=== PATIENT | female | born 1935 | race Caucasian/White ===

== ENCOUNTER 2018-09-25 10:30 | Outpatient (RCR) | payer MEDICARE, SELFPAY ==
--- NOTE | 2018-07-17 16:45 | PT.OPPOC ---
Current Diagnoses Muscle weakness (generalized) (07/17/18) Other abnormalities of gait and mobility (07/17/18) Dizziness and giddiness (07/17/18) Provider Visit Care Team Role Provider Type Willy Arizmendi MD Attending Provider Physician Specialty: Ear, Nose, Throat Address: [address] [place] [address], [id number] Email: Plan Of Care PT-OP-T Assessment and Plan Start: 07/17/18 17:48 Freq: Status: Active Protocol: Document 07/17/18 16:00 DCW (Rec: 07/18/18 09:59 DCW [id number]) Physical Therapy Assessment Rehab Potential Rehabilitation Potential Good Evaluation Complexity Number of Personal Factors/Comorbidities 1-2 Number of Body Systems Impaired 3 Clinical Presentation at Evaluation Unstable Impairments Impairments Activity Tolerance Balance Functional Activities Strength Goals Four Impairment DHI Union Contract Representative Goal (LTG) Pt to score 10% on DHI Three Impairment DGI demonstrates decreased dynamic balance Short Term Goal (STG) Pt to score 16/24 on the DGI STG Duration 08/16/18 Skilled Nursing Goal (LTG) Pt to score 19/24 on the DGI LTG Duration 09/16/18 Two Impairment Pt fear of falling Short Term Goal (STG) Pt to descend stairs at home with no increased anxiety STG Duration 08/16/18 Union Contract Representative Goal (LTG) Pt to work out in yard for one hour with no reports of instability LTG Duration 09/16/18 One Impairment Pt has no appropriate independent home exercise program Short Term Goal (STG) Pt to be independent and consistent with an appropriate HEP STG Duration 08/16/18 Assessment Summary Assessment Pt presents with signs and symptoms of a multi-factorial loss of balance and stability, resulting in an increased falls risk and an increased fear of falling. Pt's vestibular examination was largely negative, with hearing loss noted L>R (pt was not wearing her hearing aids), and a mildly positive heave and thrust test bilaterally, which is usually associated with age-related vestibular hypofunction. Pt balance testing demonstrated good static balance, per a 49/56 Martinez Balance, and fair-poor dynamic balance, scoring a 13/ 24 on the DGI. Pt also displayed generalized LE weakness. Further testing should be performed, mainly a TUG test and CTSIB, as well as lower extremity sensory testing. Pt would likely benefit from skilled therapy focusing on balance testing and LE strengthening, which should help decrease her falls risk. Physical Therapy Plan Frequency and Duration Frequency of Treatment 2x/Week Duration of Treatment 10 weeks Plan of Care Start Date 07/17/18 Plan of Care End Date 09/25/18 Therapeutic Interventions Therapeutic Interventions Aquatic Therapy Balance Training Gait Training Home Exercise Program Manual Therapy Patient/Caregiver Education Self-Care/Home Management Therapeutic Activities Therapeutic Exercises Vestibular Rehabilitation Modalities Cold Pack/Ice Massage Hot Packs Next Visit Focus/Plan Next Note Type Treatment Note Next Visit Plan TUG, LE sensory testing, CTSIB , balance testing Plan of Care Dates Plan of Care Start Date 07/17/18 Plan of Care End Date 09/25/18 Please Sign and Return: I have reviewed this Plan of Care and certify that the skilled therapy services above are required to meet the patient?s needs. Physician Signature Date Printed Name and Credentials Clinical Instructor Signature Printed Name and Credentials
--- NOTE | 2018-07-17 16:45 | PT.OIE ---
Current Diagnoses Muscle weakness (generalized) (07/17/18) Other abnormalities of gait and mobility (07/17/18) Dizziness and giddiness (07/17/18) Provider Visit Care Team Role Provider Type Willy Arizmendi MD Attending Provider Physician Specialty: Ear, Nose, Throat Address: [address] [place] [address], [phone] Email: Physical Therapy Initial Evaluation PT-OP-A Visit Information Start: 07/17/18 17:48 Freq: Status: Active Protocol: Document 07/17/18 16:00 DCW (Rec: 07/18/18 09:59 DCW [id number]) Out-Patient Physical Therapy Visit Information Visit Information Visit Type Initial Evaluation Visit Start Time 16:00 Visit Stop Time 16:45 Total Visit Minutes 45 Visit Number 1 Number of MERRY GO ROUND OPERATOR Visits 0 Evaluation Information Evaluation Date 07/17/18 PT-OP-B Current Condition Start: 07/17/18 17:48 Freq: Status: Active Protocol: Document 07/17/18 16:00 DCW (Rec: 07/18/18 09:59 DCW [id number]) Current Condition History of Current Condition Onset Date one year Current Complaints Gradual worsening of feeling of imbalance and increased fear of falling History of Current Condition Pt is an 82 year old female presenting with a ongoing history of a sensation of dizziness. Pt notes her dizziness is not rotational in nature, it is more of a general feeling of imbalance/ unsteadiness. Reports that she has noticed this sensation for more than a year, but with being out during the summer doing gardening, it seems to be worsening. Notes this sensation is more or less always there, and she feels the need to sit at the edge of her bed for a while when first getting up in order to center herself. Pt reports two recent falls, one occurring after she jumped quickly out of bed to get to the bathroom, and one following cataract surgery when she was leaning backward to put in eye drops and lost her balance. Pt denies recent hearing changes, diplopia, dysarthria, discoordination, or decreased mentation/consciousness. Pt denies hx of HTN, hyperlipidemia, diabetes, arrhythmia, head trauma, seizure, migraines, CVA, anxiety/panic disorders, depression, or excessive smoking or drinking. Treatment Goals Patient/Caregiver Goals Pt wants to feel more stable when up walking around Prior Functional Status Baseline Function- ADL's Independent Baseline Function- Mobility Independent Current Functional Impairments (Reported) Functional Limitations- Mobility/Gait Anxiety descending stairs Functional Limitations- Recreation/ Difficulty being out working Hobbies in the yard PT-OP-C Subjective Start: 07/17/18 17:48 Freq: Status: Active Protocol: Document 07/17/18 16:00 DCW (Rec: 07/18/18 09:59 DCW [id number]) Patient Questionnaires Dizziness Handicap Inventory DHI Score 32% DHI Functional Impairment 20 to 39% Impaired (Score 20- 39) OP-PT Pain Assessment Pain Assessment Grid Paper Pain Assessment Grid Completed No PT-OP-D Balance Start: 07/17/18 17:48 Freq: Status: Active Protocol: Document 07/17/18 16:00 DCW (Rec: 07/18/18 09:59 DCW [id number]) OP-PT Balance Assessment Sitting Balance Static Sitting Balance Ability Normal Dynamic Sitting Balance Ability Normal Standing Balance Static Standing Balance Ability Good Dynamic Standing Balance Ability Fair Balance Tests Martinez Balance Test Martinez Balance Test Score 49/56 Martinez Impairment Rating 1 to 19% Impaired (Score 45-55 ) Martinez Balance Assessment Evaluation Sitting to Standing Ability Independent w/out Hands Unsupported Stance Safely- 2 minutes Sitting Unsupported, Feet on Floor Safely- 2 minutes Standing to Sitting Ability Safely, Minimal Hand Use Transfer Ability Safely, Minimal Hand Use Unsupported Stance- Eyes Closed Safely, 10 seconds Unsupported Stance- Eyes Open Independent, 1 minute Reaching Forward Standing Confidently, 10 inches Pick- Up Object From Floor Independent/Safe Look Behind Shoulder - Standing Turns Sideways Only Turning 360 Degrees Turns , < 4 secs Unsupported Stance, Alternating Feet on (I)- 8 Steps in 20 secs Stair Unsupported Tandem Stance Holds Tandem- 30 seconds Unilateral Leg Stance Lifts Leg/Unable to Hold Total Score Martinez Total Score (out of 56 points) 49 Martinez Impairment Rating 1 to 19% Impaired (Score 45-55 ) Coleman Fall Scale Copyright Permission Coleman GONZALES, Coleman RM, Rubio SJ. Development of a scale to identify the fall- prone patient. Can J Aging 1989;8;366-7. Diane Cee (2009). Preventing patient falls. (2nd ed). Dawson: Shearer. PT-OP-E Functional Tests Start: 07/17/18 17:48 Freq: Status: Active Protocol: Document 07/17/18 16:00 DCW (Rec: 07/18/18 09:59 DCW [id number]) Functional Tests Dynamic Gait Index (DGI) Score 13/24 DGI Impairment Rating 40 to <60% Impaired (Score 10- 14) PT-OP-M Strength Start: 07/17/18 17:48 Freq: Status: Active Protocol: Document 07/17/18 16:00 DCW (Rec: 07/18/18 09:59 DCW [id number]) Hip Strength Hip Manual Muscle Testing Right Flexion (L2) 4 Good Extension (S1) 4 Good Abduction 4- Good- Adduction 4 Good External Rotation 4- Good- Internal Rotation 4- Good- Left Flexion (L2) 4 Good Extension (S1) 4 Good Abduction 4- Good- Adduction 4 Good External Rotation 4- Good- Internal Rotation 4- Good- Knee Strength Knee Manual Muscle Testing Right Flexion (S2) 4 Good Extension (L3) 4- Good- Left Flexion (S2) 4 Good Extension (L3) 4- Good- Ankle/Foot Strength Ankle and Foot Manual Muscle Testing Right Dorsiflexion (L4) 4- Good- Plantarflexion (S1) 4- Good- Left Dorsiflexion (L4) 4- Good- Plantarflexion (S1) 4- Good- PT-OP-O Vestibular Start: 07/18/18 09:59 Freq: Status: Active Protocol: Document 07/17/18 16:00 DCW (Rec: 07/18/18 10:01 DCW [id number]) Vestibular Assessment Screening Tests Vestibular Artery Screen Negative Sharp-Katie Test Negative Auditory Tests Alexander Test Negative Rinne Test Negative Air Conduction Results Right Greater Visual Testing Smooth Pursuits Horizontal Negative Smooth Pursuits Vertical Negative Saccades Horizontal Negative Gaze Evoked Nystagmus With Fixation Negative Gaze Evoked Nystagmus Without Fixation Negative Heave Test Positive Bilateral Thrust Head Positive Bilateral Head Shake Negative Positional Testing Beto-Hallpike Negative Left Negative Right Rolling Test Negative Left Negative Right Supine to Sit lighthead Comments Vestibular Comments Thrust and heave tests mildly positive bilaterally PT-OP-T Assessment and Plan Start: 07/17/18 17:48 Freq: Status: Active Protocol: Document 07/17/18 16:00 DCW (Rec: 07/18/18 09:59 DCW [id number]) Physical Therapy Assessment Rehab Potential Rehabilitation Potential Good Evaluation Complexity Number of Personal Factors/Comorbidities 1-2 Number of Body Systems Impaired 3 Clinical Presentation at Evaluation Unstable Impairments Impairments Activity Tolerance Balance Functional Activities Strength Goals Four Impairment DHI Ruling Machine Feeder Goal (LTG) Pt to score 10% on DHI Three Impairment DGI demonstrates decreased dynamic balance Short Term Goal (STG) Pt to score 16/24 on the DGI STG Duration 08/16/18 Halfway Goal (LTG) Pt to score 19/24 on the DGI LTG Duration 09/16/18 Two Impairment Pt fear of falling Short Term Goal (STG) Pt to descend stairs at home with no increased anxiety STG Duration 08/16/18 Halfway Goal (LTG) Pt to work out in yard for one hour with no reports of instability LTG Duration 09/16/18 One Impairment Pt has no appropriate independent home exercise program Short Term Goal (STG) Pt to be independent and consistent with an appropriate HEP STG Duration 08/16/18 Assessment Summary Assessment Pt presents with signs and symptoms of a multi-factorial loss of balance and stability, resulting in an increased falls risk and an increased fear of falling. Pt's vestibular examination was largely negative, with hearing loss noted L>R (pt was not wearing her hearing aids), and a mildly positive heave and thrust test bilaterally, which is usually associated with age-related vestibular hypofunction. Pt balance testing demonstrated good static balance, per a 49/56 Martinez Balance, and fair-poor dynamic balance, scoring a 13/ 24 on the DGI. Pt also displayed generalized LE weakness. Further testing should be performed, mainly a TUG test and CTSIB, as well as lower extremity sensory testing. Pt would likely benefit from skilled therapy focusing on balance testing and LE strengthening, which should help decrease her falls risk. Physical Therapy Plan Frequency and Duration Frequency of Treatment 2x/Week Duration of Treatment 10 weeks Plan of Care Start Date 07/17/18 Plan of Care End Date 09/25/18 Therapeutic Interventions Therapeutic Interventions Aquatic Therapy Balance Training Gait Training Home Exercise Program Manual Therapy Patient/Caregiver Education Self-Care/Home Management Therapeutic Activities Therapeutic Exercises Vestibular Rehabilitation Modalities Cold Pack/Ice Massage Hot Packs Next Visit Focus/Plan Next Note Type Treatment Note Next Visit Plan TUG, LE sensory testing, CTSIB , balance testing
--- NOTE | 2018-07-23 17:33 | PT.OTN ---
Current Diagnoses Dizziness and giddiness (07/23/18) Physical Therapy Treatment Note PT-OP-A Visit Information Start: 07/17/18 17:48 Freq: Status: Active Protocol: Document 07/23/18 16:45 DCW (Rec: 07/23/18 17:33 DCW [id number]) Out-Patient Physical Therapy Visit Information Visit Information Visit Type Treatment Note Visit Start Time 16:45 Visit Stop Time 17:30 Total Visit Minutes 45 Visit Number 2 Number of ICE GRINDER Visits 0 Evaluation Information Evaluation Date 07/17/18 PT-OP-B Current Condition Start: 07/17/18 17:48 Freq: Status: Active Protocol: Document 07/17/18 16:00 DCW (Rec: 07/18/18 09:59 DCW [id number]) Current Condition History of Current Condition Onset Date one year Current Complaints Gradual worsening of feeling of imbalance and increased fear of falling History of Current Condition Pt is an 82 year old female presenting with a ongoing history of a sensation of dizziness. Pt notes her dizziness is not rotational in nature, it is more of a general feeling of imbalance/ unsteadiness. Reports that she has noticed this sensation for more than a year, but with being out during the summer doing gardening, it seems to be worsening. Notes this sensation is more or less always there, and she feels the need to sit at the edge of her bed for a while when first getting up in order to center herself. Pt reports two recent falls, one occurring after she jumped quickly out of bed to get to the bathroom, and one following cataract surgery when she was leaning backward to put in eye drops and lost her balance. Pt denies recent hearing changes, diplopia, dysarthria, discoordination, or decreased mentation/consciousness. Pt denies hx of HTN, hyperlipidemia, diabetes, arrhythmia, head trauma, seizure, migraines, CVA, anxiety/panic disorders, depression, or excessive smoking or drinking. Treatment Goals Patient/Caregiver Goals Pt wants to feel more stable when up walking around Prior Functional Status Baseline Function- ADL's Independent Baseline Function- Mobility Independent Current Functional Impairments (Reported) Functional Limitations- Mobility/Gait Anxiety descending stairs Functional Limitations- Recreation/ Difficulty being out working Hobbies in the yard PT-OP-C Subjective Start: 07/17/18 17:48 Freq: Status: Active Protocol: Document 07/23/18 16:45 DCW (Rec: 07/23/18 17:33 DCW [id number]) OP-PT Subjective Patient Comments Patient Comments I spent all day digging out in the garden, so I'll probably be sore tonight. PT-OP-D Balance Start: 07/17/18 17:48 Freq: Status: Active Protocol: Document 07/17/18 16:00 DCW (Rec: 07/18/18 09:59 DCW [id number]) OP-PT Balance Assessment Sitting Balance Static Sitting Balance Ability Normal Dynamic Sitting Balance Ability Normal Standing Balance Static Standing Balance Ability Good Dynamic Standing Balance Ability Fair Balance Tests Martinez Balance Test Martinez Balance Test Score 49/56 Martinez Impairment Rating 1 to 19% Impaired (Score 45-55 ) Martinez Balance Assessment Evaluation Sitting to Standing Ability Independent w/out Hands Unsupported Stance Safely- 2 minutes Sitting Unsupported, Feet on Floor Safely- 2 minutes Standing to Sitting Ability Safely, Minimal Hand Use Transfer Ability Safely, Minimal Hand Use Unsupported Stance- Eyes Closed Safely, 10 seconds Unsupported Stance- Eyes Open Independent, 1 minute Reaching Forward Standing Confidently, 10 inches Pick- Up Object From Floor Independent/Safe Look Behind Shoulder - Standing Turns Sideways Only Turning 360 Degrees Turns , < 4 secs Unsupported Stance, Alternating Feet on (I)- 8 Steps in 20 secs Stair Unsupported Tandem Stance Holds Tandem- 30 seconds Unilateral Leg Stance Lifts Leg/Unable to Hold Total Score Martinez Total Score (out of 56 points) 49 Martinez Impairment Rating 1 to 19% Impaired (Score 45-55 ) Cee Fall Scale Copyright Permission Coleman JM, Coleman RM, Rubio SJ. Development of a scale to identify the fall- prone patient. Can J Aging 1989;8;366-7. Diane Cee (2009). Preventing patient falls. (2nd ed). Otero: Shearer. PT-OP-E Functional Tests Start: 07/17/18 17:48 Freq: Status: Active Protocol: Document 07/17/18 16:00 DCW (Rec: 07/18/18 09:59 DCW [id number]) Functional Tests Dynamic Gait Index (DGI) Score 13/24 DGI Impairment Rating 40 to <60% Impaired (Score 10- 14) PT-OP-M Strength Start: 07/17/18 17:48 Freq: Status: Active Protocol: Document 07/17/18 16:00 DCW (Rec: 07/18/18 09:59 DCW [id number]) Hip Strength Hip Manual Muscle Testing Right Flexion (L2) 4 Good Extension (S1) 4 Good Abduction 4- Good- Adduction 4 Good External Rotation 4- Good- Internal Rotation 4- Good- Left Flexion (L2) 4 Good Extension (S1) 4 Good Abduction 4- Good- Adduction 4 Good External Rotation 4- Good- Internal Rotation 4- Good- Knee Strength Knee Manual Muscle Testing Right Flexion (S2) 4 Good Extension (L3) 4- Good- Left Flexion (S2) 4 Good Extension (L3) 4- Good- Ankle/Foot Strength Ankle and Foot Manual Muscle Testing Right Dorsiflexion (L4) 4- Good- Plantarflexion (S1) 4- Good- Left Dorsiflexion (L4) 4- Good- Plantarflexion (S1) 4- Good- PT-OP-O Vestibular Start: 07/18/18 09:59 Freq: Status: Active Protocol: Document 07/17/18 16:00 DCW (Rec: 07/18/18 10:01 DCW [id number]) Vestibular Assessment Screening Tests Vestibular Artery Screen Negative Sharp-Katie Test Negative Auditory Tests Alexander Test Negative Rinne Test Negative Air Conduction Results Right Greater Visual Testing Smooth Pursuits Horizontal Negative Smooth Pursuits Vertical Negative Saccades Horizontal Negative Gaze Evoked Nystagmus With Fixation Negative Gaze Evoked Nystagmus Without Fixation Negative Heave Test Positive Bilateral Thrust Head Positive Bilateral Head Shake Negative Positional Testing Beto-Hallpike Negative Left Negative Right Rolling Test Negative Left Negative Right Supine to Sit lighthead Comments Vestibular Comments Thrust and heave tests mildly positive bilaterally PT-OP-Q Treatments Start: 07/17/18 17:48 Freq: Status: Active Protocol: Document 07/23/18 16:45 DCW (Rec: 07/23/18 17:33 DCW [id number]) Gym Equipment Shuttle Balance Red Details Wide KAYLIN (EO/EC), Staggered Stance (Head Turns), Lateral Weight Shift Therapeutic Exercises Other Exercises Resisted Forward/Retro Amb Other Exercise Name Resisted Forward/Retro Ambulation Side bilateral Resistance Yellow Equipment Used T-band Resisted Side Stepping Other Exercise Name Resisted Side-Stepping Side bilateral Resistance Yellow Equipment Used T-band Neuro Re-Education Treatment Balance Activities Hurdles/Foam Details Forward staggered, forward tandem, side-stepping Surface Green, Blue, Black foam Equipment Hurdles Heel/toe Walking Details Fwd/Bkwd heel-toe ambulation Surface Solid Narrow KAYLIN Details EO/EC, Head turns Surface Leo foam SLS Details SLS at rail Surface solid PT-OP-T Assessment and Plan Start: 07/17/18 17:48 Freq: Status: Active Protocol: Document 07/23/18 16:45 DCW (Rec: 07/23/18 17:33 DCW [id number]) Physical Therapy Assessment Impairments Impairments Activity Tolerance Balance Functional Activities Strength Goals Four Impairment DHI Intermediate Goal (LTG) Pt to score 10% on DHI Three Impairment DGI demonstrates decreased dynamic balance Short Term Goal (STG) Pt to score 16/24 on the DGI STG Duration 08/16/18 Wreath And Garland Maker Goal (LTG) Pt to score 19/24 on the DGI LTG Duration 09/16/18 Two Impairment Pt fear of falling Short Term Goal (STG) Pt to descend stairs at home with no increased anxiety STG Duration 08/16/18 Wreath And Garland Maker Goal (LTG) Pt to work out in yard for one hour with no reports of instability LTG Duration 09/16/18 One Impairment Pt has no appropriate independent home exercise program Short Term Goal (STG) Pt to be independent and consistent with an appropriate HEP STG Duration 08/16/18 Assessment Summary Assessment Pt tolerated balance training well, wants to try SLS and Tandem Stance for HEP, able to demonstrate safe and appropriate ability. Physical Therapy Plan Frequency and Duration Frequency of Treatment 2x/Week Duration of Treatment 10 weeks Plan of Care Start Date 07/17/18 Plan of Care End Date 09/25/18 Therapeutic Interventions Therapeutic Interventions Aquatic Therapy Balance Training Gait Training Home Exercise Program Manual Therapy Patient/Caregiver Education Self-Care/Home Management Therapeutic Activities Therapeutic Exercises Vestibular Rehabilitation Modalities Cold Pack/Ice Massage Hot Packs Next Visit Focus/Plan Next Note Type Treatment Note Next Visit Plan TUG, LE sensory testing, CTSIB , balance training
--- NOTE | 2018-07-31 12:44 | PT.OTN ---
Current Diagnoses Dizziness and giddiness (07/31/18) Physical Therapy Treatment Note PT-OP-A Visit Information Start: 07/17/18 17:48 Freq: Status: Active Protocol: Document 07/31/18 12:05 DCW (Rec: 07/31/18 12:44 DCW [id number]) Out-Patient Physical Therapy Visit Information Visit Information Visit Type Treatment Note Visit Start Time 12:05 Visit Stop Time 12:45 Total Visit Minutes 40 Visit Number 3 Number of BASIN OPERATOR Visits 0 Evaluation Information Evaluation Date 07/17/18 PT-OP-B Current Condition Start: 07/17/18 17:48 Freq: Status: Active Protocol: Document 07/17/18 16:00 DCW (Rec: 07/18/18 09:59 DCW [id number]) Current Condition History of Current Condition Onset Date one year Current Complaints Gradual worsening of feeling of imbalance and increased fear of falling History of Current Condition Pt is an 82 year old female presenting with a ongoing history of a sensation of dizziness. Pt notes her dizziness is not rotational in nature, it is more of a general feeling of imbalance/ unsteadiness. Reports that she has noticed this sensation for more than a year, but with being out during the summer doing gardening, it seems to be worsening. Notes this sensation is more or less always there, and she feels the need to sit at the edge of her bed for a while when first getting up in order to center herself. Pt reports two recent falls, one occurring after she jumped quickly out of bed to get to the bathroom, and one following cataract surgery when she was leaning backward to put in eye drops and lost her balance. Pt denies recent hearing changes, diplopia, dysarthria, discoordination, or decreased mentation/consciousness. Pt denies hx of HTN, hyperlipidemia, diabetes, arrhythmia, head trauma, seizure, migraines, CVA, anxiety/panic disorders, depression, or excessive smoking or drinking. Treatment Goals Patient/Caregiver Goals Pt wants to feel more stable when up walking around Prior Functional Status Baseline Function- ADL's Independent Baseline Function- Mobility Independent Current Functional Impairments (Reported) Functional Limitations- Mobility/Gait Anxiety descending stairs Functional Limitations- Recreation/ Difficulty being out working Hobbies in the yard PT-OP-C Subjective Start: 07/17/18 17:48 Freq: Status: Active Protocol: Document 07/31/18 12:05 DCW (Rec: 07/31/18 12:44 DCW [id number]) OP-PT Subjective Patient Comments Patient Comments I've been working on some of my home exercises, they're tough. PT-OP-D Balance Start: 07/17/18 17:48 Freq: Status: Active Protocol: Document 07/17/18 16:00 DCW (Rec: 07/18/18 09:59 DCW [id number]) OP-PT Balance Assessment Sitting Balance Static Sitting Balance Ability Normal Dynamic Sitting Balance Ability Normal Standing Balance Static Standing Balance Ability Good Dynamic Standing Balance Ability Fair Balance Tests Martinez Balance Test Martinez Balance Test Score 49/56 Martinez Impairment Rating 1 to 19% Impaired (Score 45-55 ) Martinez Balance Assessment Evaluation Sitting to Standing Ability Independent w/out Hands Unsupported Stance Safely- 2 minutes Sitting Unsupported, Feet on Floor Safely- 2 minutes Standing to Sitting Ability Safely, Minimal Hand Use Transfer Ability Safely, Minimal Hand Use Unsupported Stance- Eyes Closed Safely, 10 seconds Unsupported Stance- Eyes Open Independent, 1 minute Reaching Forward Standing Confidently, 10 inches Pick- Up Object From Floor Independent/Safe Look Behind Shoulder - Standing Turns Sideways Only Turning 360 Degrees Turns , < 4 secs Unsupported Stance, Alternating Feet on (I)- 8 Steps in 20 secs Stair Unsupported Tandem Stance Holds Tandem- 30 seconds Unilateral Leg Stance Lifts Leg/Unable to Hold Total Score Martinez Total Score (out of 56 points) 49 Martinez Impairment Rating 1 to 19% Impaired (Score 45-55 ) Coleman Fall Scale Copyright Permission Coleman JM, Coleman RM, Rubio SJ. Development of a scale to identify the fall- prone patient. Can J Aging 1989;8;366-7. Diane Cee (2009). Preventing patient falls. (2nd ed). [place]: Shearer. PT-OP-E Functional Tests Start: 07/17/18 17:48 Freq: Status: Active Protocol: Document 07/17/18 16:00 DCW (Rec: 07/18/18 09:59 DCW [id number]) Functional Tests Dynamic Gait Index (DGI) Score 13/24 DGI Impairment Rating 40 to <60% Impaired (Score 10- 14) PT-OP-M Strength Start: 07/17/18 17:48 Freq: Status: Active Protocol: Document 07/17/18 16:00 DCW (Rec: 07/18/18 09:59 DCW [id number]) Hip Strength Hip Manual Muscle Testing Right Flexion (L2) 4 Good Extension (S1) 4 Good Abduction 4- Good- Adduction 4 Good External Rotation 4- Good- Internal Rotation 4- Good- Left Flexion (L2) 4 Good Extension (S1) 4 Good Abduction 4- Good- Adduction 4 Good External Rotation 4- Good- Internal Rotation 4- Good- Knee Strength Knee Manual Muscle Testing Right Flexion (S2) 4 Good Extension (L3) 4- Good- Left Flexion (S2) 4 Good Extension (L3) 4- Good- Ankle/Foot Strength Ankle and Foot Manual Muscle Testing Right Dorsiflexion (L4) 4- Good- Plantarflexion (S1) 4- Good- Left Dorsiflexion (L4) 4- Good- Plantarflexion (S1) 4- Good- PT-OP-O Vestibular Start: 07/18/18 09:59 Freq: Status: Active Protocol: Document 07/17/18 16:00 DCW (Rec: 07/18/18 10:01 DCW [id number]) Vestibular Assessment Screening Tests Vestibular Artery Screen Negative Sharp-Katie Test Negative Auditory Tests Alexander Test Negative Rinne Test Negative Air Conduction Results Right Greater Visual Testing Smooth Pursuits Horizontal Negative Smooth Pursuits Vertical Negative Saccades Horizontal Negative Gaze Evoked Nystagmus With Fixation Negative Gaze Evoked Nystagmus Without Fixation Negative Heave Test Positive Bilateral Thrust Head Positive Bilateral Head Shake Negative Positional Testing Beto-Hallpike Negative Left Negative Right Rolling Test Negative Left Negative Right Supine to Sit lighthead Comments Vestibular Comments Thrust and heave tests mildly positive bilaterally PT-OP-Q Treatments Start: 07/17/18 17:48 Freq: Status: Active Protocol: Document 07/31/18 12:05 DCW (Rec: 07/31/18 12:44 DCW [id number]) Gym Equipment Shuttle Balance Yellow Details Wide KAYLIN (head turns) Red Details Wide KAYLIN (EO/EC), Staggered Stance Therapeutic Exercises Other Exercises Resisted Forward/Retro Amb Other Exercise Name Resisted Forward/Retro Ambulation Side bilateral Resistance Yellow Equipment Used T-band Resisted Side Stepping Other Exercise Name Resisted Side-Stepping Side bilateral Resistance Yellow Equipment Used T-band Neuro Re-Education Treatment Balance Activities [place] Details L/R grapevine Hurdles/Foam Details Forward staggered, forward tandem, side-stepping Surface Green, Blue, Black foam, air discs Equipment Hurdles Heel/toe Walking Details Fwd/Bkwd heel-toe ambulation Surface Solid PT-OP-T Assessment and Plan Start: 07/17/18 17:48 Freq: Status: Active Protocol: Document 07/31/18 12:05 DCW (Rec: 07/31/18 12:44 DCW [id number]) Physical Therapy Assessment Impairments Impairments Activity Tolerance Balance Functional Activities Strength Goals Four Impairment DHI Long-Term Goal (LTG) Pt to score 10% on DHI Three Impairment DGI demonstrates decreased dynamic balance Short Term Goal (STG) Pt to score 16/24 on the DGI STG Duration 08/16/18 Long-Term Goal (LTG) Pt to score 19/24 on the DGI LTG Duration 09/16/18 Two Impairment Pt fear of falling Short Term Goal (STG) Pt to descend stairs at home with no increased anxiety STG Duration 08/16/18 Paper Reeler Goal (LTG) Pt to work out in yard for one hour with no reports of instability LTG Duration 09/16/18 One Impairment Pt has no appropriate independent home exercise program Short Term Goal (STG) Pt to be independent and consistent with an appropriate HEP STG Duration 08/16/18 Assessment Summary Assessment Pt consistent with HEP, will add resisted side-stepping to program. Pt did better on Shuttle Balance today. Physical Therapy Plan Frequency and Duration Frequency of Treatment 2x/Week Duration of Treatment 10 weeks Plan of Care Start Date 07/17/18 Plan of Care End Date 09/25/18 Therapeutic Interventions Therapeutic Interventions Aquatic Therapy Balance Training Gait Training Home Exercise Program Manual Therapy Patient/Caregiver Education Self-Care/Home Management Therapeutic Activities Therapeutic Exercises Vestibular Rehabilitation Modalities Cold Pack/Ice Massage Hot Packs Next Visit Focus/Plan Next Note Type Treatment Note Next Visit Plan balance training, LE strengthening
--- NOTE | 2018-08-21 15:11 | PT.OTN ---
Current Diagnoses Dizziness and giddiness (08/21/18) Physical Therapy Treatment Note PT-OP-A Visit Information Start: 07/17/18 17:48 Freq: Status: Active Protocol: Document 08/21/18 14:30 DCW (Rec: 08/21/18 15:10 DCW [id number]) Out-Patient Physical Therapy Visit Information Visit Information Visit Type Treatment Note Visit Start Time 14:30 Visit Stop Time 15:15 Total Visit Minutes 42 Visit Number 4 Number of POWER PLANT ENGINEER Visits 0 Evaluation Information Evaluation Date 07/17/18 PT-OP-B Current Condition Start: 07/17/18 17:48 Freq: Status: Active Protocol: Document 07/17/18 16:00 DCW (Rec: 07/18/18 09:59 DCW [id number]) Current Condition History of Current Condition Onset Date one year Current Complaints Gradual worsening of feeling of imbalance and increased fear of falling History of Current Condition Pt is an 82 year old female presenting with a ongoing history of a sensation of dizziness. Pt notes her dizziness is not rotational in nature, it is more of a general feeling of imbalance/ unsteadiness. Reports that she has noticed this sensation for more than a year, but with being out during the summer doing gardening, it seems to be worsening. Notes this sensation is more or less always there, and she feels the need to sit at the edge of her bed for a while when first getting up in order to center herself. Pt reports two recent falls, one occurring after she jumped quickly out of bed to get to the bathroom, and one following cataract surgery when she was leaning backward to put in eye drops and lost her balance. Pt denies recent hearing changes, diplopia, dysarthria, discoordination, or decreased mentation/consciousness. Pt denies hx of HTN, hyperlipidemia, diabetes, arrhythmia, head trauma, seizure, migraines, CVA, anxiety/panic disorders, depression, or excessive smoking or drinking. Treatment Goals Patient/Caregiver Goals Pt wants to feel more stable when up walking around Prior Functional Status Baseline Function- ADL's Independent Baseline Function- Mobility Independent Current Functional Impairments (Reported) Functional Limitations- Mobility/Gait Anxiety descending stairs Functional Limitations- Recreation/ Difficulty being out working Hobbies in the yard PT-OP-C Subjective Start: 07/17/18 17:48 Freq: Status: Active Protocol: Document 08/21/18 14:30 DCW (Rec: 08/21/18 15:11 DCW [id number]) OP-PT Subjective Patient Comments Patient Comments Pt reports that she just got back from a vacation in [place] two days ago, and admits that she was not very compliant with her HEP while she was gone. PT-OP-D Balance Start: 07/17/18 17:48 Freq: Status: Active Protocol: Document 07/17/18 16:00 DCW (Rec: 07/18/18 09:59 DCW [id number]) OP-PT Balance Assessment Sitting Balance Static Sitting Balance Ability Normal Dynamic Sitting Balance Ability Normal Standing Balance Static Standing Balance Ability Good Dynamic Standing Balance Ability Fair Balance Tests Martinez Balance Test Martinez Balance Test Score 49/56 Martinez Impairment Rating 1 to 19% Impaired (Score 45-55 ) Martinez Balance Assessment Evaluation Sitting to Standing Ability Independent w/out Hands Unsupported Stance Safely- 2 minutes Sitting Unsupported, Feet on Floor Safely- 2 minutes Standing to Sitting Ability Safely, Minimal Hand Use Transfer Ability Safely, Minimal Hand Use Unsupported Stance- Eyes Closed Safely, 10 seconds Unsupported Stance- Eyes Open Independent, 1 minute Reaching Forward Standing Confidently, 10 inches Pick- Up Object From Floor Independent/Safe Look Behind Shoulder - Standing Turns Sideways Only Turning 360 Degrees Turns , < 4 secs Unsupported Stance, Alternating Feet on (I)- 8 Steps in 20 secs Stair Unsupported Tandem Stance Holds Tandem- 30 seconds Unilateral Leg Stance Lifts Leg/Unable to Hold Total Score Martinez Total Score (out of 56 points) 49 Martinez Impairment Rating 1 to 19% Impaired (Score 45-55 ) Coleman Fall Scale Copyright Permission Coleman JM, Coleman RM, Rubio SJ. Development of a scale to identify the fall- prone patient. Can J Aging 1989;8;366-7. Diane Cee (2009). Preventing patient falls. (2nd ed). [place]: Shearer. PT-OP-E Functional Tests Start: 07/17/18 17:48 Freq: Status: Active Protocol: Document 07/17/18 16:00 DCW (Rec: 07/18/18 09:59 DCW [id number]) Functional Tests Dynamic Gait Index (DGI) Score 13/24 DGI Impairment Rating 40 to <60% Impaired (Score 10- 14) PT-OP-M Strength Start: 07/17/18 17:48 Freq: Status: Active Protocol: Document 07/17/18 16:00 DCW (Rec: 07/18/18 09:59 DCW [id number]) Hip Strength Hip Manual Muscle Testing Right Flexion (L2) 4 Good Extension (S1) 4 Good Abduction 4- Good- Adduction 4 Good External Rotation 4- Good- Internal Rotation 4- Good- Left Flexion (L2) 4 Good Extension (S1) 4 Good Abduction 4- Good- Adduction 4 Good External Rotation 4- Good- Internal Rotation 4- Good- Knee Strength Knee Manual Muscle Testing Right Flexion (S2) 4 Good Extension (L3) 4- Good- Left Flexion (S2) 4 Good Extension (L3) 4- Good- Ankle/Foot Strength Ankle and Foot Manual Muscle Testing Right Dorsiflexion (L4) 4- Good- Plantarflexion (S1) 4- Good- Left Dorsiflexion (L4) 4- Good- Plantarflexion (S1) 4- Good- PT-OP-O Vestibular Start: 07/18/18 09:59 Freq: Status: Active Protocol: Document 07/17/18 16:00 DCW (Rec: 07/18/18 10:01 DCW [id number]) Vestibular Assessment Screening Tests Vestibular Artery Screen Negative Sharp-Katie Test Negative Auditory Tests Alexander Test Negative Rinne Test Negative Air Conduction Results Right Greater Visual Testing Smooth Pursuits Horizontal Negative Smooth Pursuits Vertical Negative Saccades Horizontal Negative Gaze Evoked Nystagmus With Fixation Negative Gaze Evoked Nystagmus Without Fixation Negative Heave Test Positive Bilateral Thrust Head Positive Bilateral Head Shake Negative Positional Testing Cotter-Hallpike Negative Left Negative Right Rolling Test Negative Left Negative Right Supine to Sit lighthead Comments Vestibular Comments Thrust and heave tests mildly positive bilaterally PT-OP-Q Treatments Start: 07/17/18 17:48 Freq: Status: Active Protocol: Document 08/21/18 14:30 DCW (Rec: 08/21/18 15:10 DCW [id number]) Gym Equipment Shuttle Balance Yellow Details Turns, Tandem stance (EO/EC) Red Details Wide KAYLIN (EO/EC), Staggered Stance, Lateral Weight Shift Therapeutic Exercises Other Exercises Resisted Forward/Retro Amb Other Exercise Name Resisted Forward/Retro Ambulation Side bilateral Resistance Yellow Equipment Used T-band Resisted Side Stepping Other Exercise Name Resisted Side-Stepping Side bilateral Resistance Yellow Equipment Used T-band Neuro Re-Education Treatment Balance Activities Visual Conflict Details Double leg stance Surface Foam Equipment Visual conflict board Heel/toe Walking Details Fwd/Bkwd heel-toe ambulation Surface Solid SLS Details SLS at rail Surface solid PT-OP-T Assessment and Plan Start: 07/17/18 17:48 Freq: Status: Active Protocol: Document 08/21/18 14:30 DCW (Rec: 08/21/18 15:10 DCW [id number]) Physical Therapy Assessment Impairments Impairments Activity Tolerance Balance Functional Activities Strength Goals Four Impairment DHI Snf Goal (LTG) Pt to score 10% on DHI Three Impairment DGI demonstrates decreased dynamic balance Short Term Goal (STG) Pt to score 16/24 on the DGI STG Duration 08/16/18 Snf Goal (LTG) Pt to score 19/24 on the DGI LTG Duration 09/16/18 Two Impairment Pt fear of falling Short Term Goal (STG) Pt to descend stairs at home with no increased anxiety STG Duration 08/16/18 Ship Erector Goal (LTG) Pt to work out in yard for one hour with no reports of instability LTG Duration 09/16/18 One Impairment Pt has no appropriate independent home exercise program Short Term Goal (STG) Pt to be independent and consistent with an appropriate HEP STG Duration 08/16/18 Assessment Summary Assessment Pt continues to improve with her balance exercises, appears to be more comfortable on the shuttle Physical Therapy Plan Frequency and Duration Frequency of Treatment 2x/Week Duration of Treatment 10 weeks Plan of Care Start Date 07/17/18 Plan of Care End Date 09/25/18 Therapeutic Interventions Therapeutic Interventions Aquatic Therapy Balance Training Gait Training Home Exercise Program Manual Therapy Patient/Caregiver Education Self-Care/Home Management Therapeutic Activities Therapeutic Exercises Vestibular Rehabilitation Modalities Cold Pack/Ice Massage Hot Packs Next Visit Focus/Plan Next Note Type Treatment Note Next Visit Plan balance training, LE strengthening
--- NOTE | 2018-08-28 12:47 | PT.OTN ---
Current Diagnoses Dizziness and giddiness (08/28/18) Physical Therapy Treatment Note PT-OP-A Visit Information Start: 07/17/18 17:48 Freq: Status: Active Protocol: Document 08/28/18 12:05 DCW (Rec: 08/28/18 12:47 DCW [id number]) Out-Patient Physical Therapy Visit Information Visit Information Visit Type Treatment Note Visit Start Time 12:05 Visit Stop Time 12:45 Total Visit Minutes 40 Visit Number 5 Number of MOLECULAR BIOLOGY DIRECTOR Visits 0 Evaluation Information Evaluation Date 07/17/18 PT-OP-B Current Condition Start: 07/17/18 17:48 Freq: Status: Active Protocol: Document 07/17/18 16:00 DCW (Rec: 07/18/18 09:59 DCW [id number]) Current Condition History of Current Condition Onset Date one year Current Complaints Gradual worsening of feeling of imbalance and increased fear of falling History of Current Condition Pt is an 82 year old female presenting with a ongoing history of a sensation of dizziness. Pt notes her dizziness is not rotational in nature, it is more of a general feeling of imbalance/ unsteadiness. Reports that she has noticed this sensation for more than a year, but with being out during the summer doing gardening, it seems to be worsening. Notes this sensation is more or less always there, and she feels the need to sit at the edge of her bed for a while when first getting up in order to center herself. Pt reports two recent falls, one occurring after she jumped quickly out of bed to get to the bathroom, and one following cataract surgery when she was leaning backward to put in eye drops and lost her balance. Pt denies recent hearing changes, diplopia, dysarthria, discoordination, or decreased mentation/consciousness. Pt denies hx of HTN, hyperlipidemia, diabetes, arrhythmia, head trauma, seizure, migraines, CVA, anxiety/panic disorders, depression, or excessive smoking or drinking. Treatment Goals Patient/Caregiver Goals Pt wants to feel more stable when up walking around Prior Functional Status Baseline Function- ADL's Independent Baseline Function- Mobility Independent Current Functional Impairments (Reported) Functional Limitations- Mobility/Gait Anxiety descending stairs Functional Limitations- Recreation/ Difficulty being out working Hobbies in the yard PT-OP-C Subjective Start: 07/17/18 17:48 Freq: Status: Active Protocol: Document 08/28/18 12:05 DCW (Rec: 08/28/18 12:47 DCW [id number]) OP-PT Subjective Patient Comments Patient Comments Pt has been working on heel- toe walking at home, notes that sometimes she does well, other times it is more difficult, and there doesn't seem to be any rhyme or reason why it changes. PT-OP-D Balance Start: 07/17/18 17:48 Freq: Status: Active Protocol: Document 07/17/18 16:00 DCW (Rec: 07/18/18 09:59 DCW [id number]) OP-PT Balance Assessment Sitting Balance Static Sitting Balance Ability Normal Dynamic Sitting Balance Ability Normal Standing Balance Static Standing Balance Ability Good Dynamic Standing Balance Ability Fair Balance Tests Martinez Balance Test Martinez Balance Test Score 49/56 Martinez Impairment Rating 1 to 19% Impaired (Score 45-55 ) Martinez Balance Assessment Evaluation Sitting to Standing Ability Independent w/out Hands Unsupported Stance Safely- 2 minutes Sitting Unsupported, Feet on Floor Safely- 2 minutes Standing to Sitting Ability Safely, Minimal Hand Use Transfer Ability Safely, Minimal Hand Use Unsupported Stance- Eyes Closed Safely, 10 seconds Unsupported Stance- Eyes Open Independent, 1 minute Reaching Forward Standing Confidently, 10 inches Pick- Up Object From Floor Independent/Safe Look Behind Shoulder - Standing Turns Sideways Only Turning 360 Degrees Turns , < 4 secs Unsupported Stance, Alternating Feet on (I)- 8 Steps in 20 secs Stair Unsupported Tandem Stance Holds Tandem- 30 seconds Unilateral Leg Stance Lifts Leg/Unable to Hold Total Score Martinez Total Score (out of 56 points) 49 Martinez Impairment Rating 1 to 19% Impaired (Score 45-55 ) Cee Fall Scale Copyright Permission Coleman GONZALES, Coleman RM, Rubio S[place]. Development of a scale to identify the fall- prone patient. Can J Aging 1989;8;366-7. Diane Cee (2009). Preventing patient falls. (2nd ed). [place]: Shearer. PT-OP-E Functional Tests Start: 07/17/18 17:48 Freq: Status: Active Protocol: Document 07/17/18 16:00 DCW (Rec: 07/18/18 09:59 DCW [id number]) Functional Tests Dynamic Gait Index (DGI) Score 13/24 DGI Impairment Rating 40 to <60% Impaired (Score 10- 14) PT-OP-M Strength Start: 07/17/18 17:48 Freq: Status: Active Protocol: Document 07/17/18 16:00 DCW (Rec: 07/18/18 09:59 DCW [id number]) Hip Strength Hip Manual Muscle Testing Right Flexion (L2) 4 Good Extension (S1) 4 Good Abduction 4- Good- Adduction 4 Good External Rotation 4- Good- Internal Rotation 4- Good- Left Flexion (L2) 4 Good Extension (S1) 4 Good Abduction 4- Good- Adduction 4 Good External Rotation 4- Good- Internal Rotation 4- Good- Knee Strength Knee Manual Muscle Testing Right Flexion (S2) 4 Good Extension (L3) 4- Good- Left Flexion (S2) 4 Good Extension (L3) 4- Good- Ankle/Foot Strength Ankle and Foot Manual Muscle Testing Right Dorsiflexion (L4) 4- Good- Plantarflexion (S1) 4- Good- Left Dorsiflexion (L4) 4- Good- Plantarflexion (S1) 4- Good- PT-OP-O Vestibular Start: 07/18/18 09:59 Freq: Status: Active Protocol: Document 07/17/18 16:00 DCW (Rec: 07/18/18 10:01 DCW [id number]) Vestibular Assessment Screening Tests Vestibular Artery Screen Negative Sharp-Katie Test Negative Auditory Tests Alexander Test Negative Rinne Test Negative Air Conduction Results Right Greater Visual Testing Smooth Pursuits Horizontal Negative Smooth Pursuits Vertical Negative Saccades Horizontal Negative Gaze Evoked Nystagmus With Fixation Negative Gaze Evoked Nystagmus Without Fixation Negative Heave Test Positive Bilateral Thrust Head Positive Bilateral Head Shake Negative Positional Testing Beto-Hallpike Negative Left Negative Right Rolling Test Negative Left Negative Right Supine to Sit lighthead Comments Vestibular Comments Thrust and heave tests mildly positive bilaterally PT-OP-Q Treatments Start: 07/17/18 17:48 Freq: Status: Active Protocol: Document 08/28/18 12:05 DCW (Rec: 08/28/18 12:47 DCW [id number]) Gym Equipment Shuttle Balance Yellow Details Turns, Tandem stance (EO/EC) Red Details Wide KAYLIN (EO/EC), Staggered Stance, Lateral Weight Shift Neuro Re-Education Treatment Balance Activities Balance Board Details PF/DF in // bars Heel/toe Walking Details Fwd/Bkwd heel-toe ambulation Surface Solid Narrow KAYLIN Details EO/EC, Head turns Surface Leo foam SLS Details SLS at rail Surface solid PT-OP-T Assessment and Plan Start: 07/17/18 17:48 Freq: Status: Active Protocol: Document 08/28/18 12:05 DCW (Rec: 08/28/18 12:47 DCW [id number]) Physical Therapy Assessment Impairments Impairments Activity Tolerance Balance Functional Activities Strength Goals Four Impairment DHI Private Pilot Goal (LTG) Pt to score 10% on DHI Three Impairment DGI demonstrates decreased dynamic balance Short Term Goal (STG) Pt to score 16/24 on the DGI STG Duration 08/16/18 Private Pilot Goal (LTG) Pt to score 19/24 on the DGI LTG Duration 09/16/18 Two Impairment Pt fear of falling Short Term Goal (STG) Pt to descend stairs at home with no increased anxiety STG Duration 08/16/18 Private Pilot Goal (LTG) Pt to work out in yard for one hour with no reports of instability LTG Duration 09/16/18 One Impairment Pt has no appropriate independent home exercise program Short Term Goal (STG) Pt to be independent and consistent with an appropriate HEP STG Duration 08/16/18 Assessment Summary Assessment Focus on transitioning to independent home program over the next few weeks, pt tolerating new activities well . Physical Therapy Plan Frequency and Duration Frequency of Treatment 2x/Week Duration of Treatment 10 weeks Plan of Care Start Date 07/17/18 Plan of Care End Date 09/25/18 Therapeutic Interventions Therapeutic Interventions Aquatic Therapy Balance Training Gait Training Home Exercise Program Manual Therapy Patient/Caregiver Education Self-Care/Home Management Therapeutic Activities Therapeutic Exercises Vestibular Rehabilitation Modalities Cold Pack/Ice Massage Hot Packs Next Visit Focus/Plan Next Note Type Treatment Note Next Visit Plan balance training, LE strengthening
--- NOTE | 2018-09-18 15:57 | PT.OTN ---
Current Diagnoses Dizziness and giddiness (09/18/18) Physical Therapy Treatment Note PT-OP-A Visit Information Start: 07/17/18 17:48 Freq: Status: Active Protocol: Document 09/18/18 15:15 DCW (Rec: 09/18/18 15:57 DCW [id number]) Out-Patient Physical Therapy Visit Information Visit Information Visit Type Treatment Note Visit Start Time 15:15 Visit Stop Time 16:00 Total Visit Minutes 45 Visit Number 6 Number of DATA MANAGEMENT SPECIALIST Visits 0 Evaluation Information Evaluation Date 07/17/18 PT-OP-B Current Condition Start: 07/17/18 17:48 Freq: Status: Active Protocol: Document 07/17/18 16:00 DCW (Rec: 07/18/18 09:59 DCW [id number]) Current Condition History of Current Condition Onset Date one year Current Complaints Gradual worsening of feeling of imbalance and increased fear of falling History of Current Condition Pt is an 82 year old female presenting with a ongoing history of a sensation of dizziness. Pt notes her dizziness is not rotational in nature, it is more of a general feeling of imbalance/ unsteadiness. Reports that she has noticed this sensation for more than a year, but with being out during the summer doing gardening, it seems to be worsening. Notes this sensation is more or less always there, and she feels the need to sit at the edge of her bed for a while when first getting up in order to center herself. Pt reports two recent falls, one occurring after she jumped quickly out of bed to get to the bathroom, and one following cataract surgery when she was leaning backward to put in eye drops and lost her balance. Pt denies recent hearing changes, diplopia, dysarthria, discoordination, or decreased mentation/consciousness. Pt denies hx of HTN, hyperlipidemia, diabetes, arrhythmia, head trauma, seizure, migraines, CVA, anxiety/panic disorders, depression, or excessive smoking or drinking. Treatment Goals Patient/Caregiver Goals Pt wants to feel more stable when up walking around Prior Functional Status Baseline Function- ADL's Independent Baseline Function- Mobility Independent Current Functional Impairments (Reported) Functional Limitations- Mobility/Gait Anxiety descending stairs Functional Limitations- Recreation/ Difficulty being out working Hobbies in the yard PT-OP-C Subjective Start: 07/17/18 17:48 Freq: Status: Active Protocol: Document 09/18/18 15:15 DCW (Rec: 09/18/18 15:57 DCW [id number]) OP-PT Subjective Patient Comments Patient Comments Pt notes that her knee is acting up due to cold weather. PT-OP-D Balance Start: 07/17/18 17:48 Freq: Status: Active Protocol: Document 07/17/18 16:00 DCW (Rec: 07/18/18 09:59 DCW [id number]) OP-PT Balance Assessment Sitting Balance Static Sitting Balance Ability Normal Dynamic Sitting Balance Ability Normal Standing Balance Static Standing Balance Ability Good Dynamic Standing Balance Ability Fair Balance Tests Martinez Balance Test Martinez Balance Test Score 49/56 Martinez Impairment Rating 1 to 19% Impaired (Score 45-55 ) Martinez Balance Assessment Evaluation Sitting to Standing Ability Independent w/out Hands Unsupported Stance Safely- 2 minutes Sitting Unsupported, Feet on Floor Safely- 2 minutes Standing to Sitting Ability Safely, Minimal Hand Use Transfer Ability Safely, Minimal Hand Use Unsupported Stance- Eyes Closed Safely, 10 seconds Unsupported Stance- Eyes Open Independent, 1 minute Reaching Forward Standing Confidently, 10 inches Pick- Up Object From Floor Independent/Safe Look Behind Shoulder - Standing Turns Sideways Only Turning 360 Degrees Turns , < 4 secs Unsupported Stance, Alternating Feet on (I)- 8 Steps in 20 secs Stair Unsupported Tandem Stance Holds Tandem- 30 seconds Unilateral Leg Stance Lifts Leg/Unable to Hold Total Score Martinez Total Score (out of 56 points) 49 Martinez Impairment Rating 1 to 19% Impaired (Score 45-55 ) Cee Fall Scale Copyright Permission Coleman JM, Coleman RM, Rubio S[place]. Development of a scale to identify the fall- prone patient. Can J Aging 1989;8;366-7. Diane Cee (2009). Preventing patient falls. (2nd ed). [place]: Shearer. PT-OP-E Functional Tests Start: 07/17/18 17:48 Freq: Status: Active Protocol: Document 07/17/18 16:00 DCW (Rec: 07/18/18 09:59 DCW [id number]) Functional Tests Dynamic Gait Index (DGI) Score 13/24 DGI Impairment Rating 40 to <60% Impaired (Score 10- 14) PT-OP-M Strength Start: 07/17/18 17:48 Freq: Status: Active Protocol: Document 07/17/18 16:00 DCW (Rec: 07/18/18 09:59 DCW [id number]) Hip Strength Hip Manual Muscle Testing Right Flexion (L2) 4 Good Extension (S1) 4 Good Abduction 4- Good- Adduction 4 Good External Rotation 4- Good- Internal Rotation 4- Good- Left Flexion (L2) 4 Good Extension (S1) 4 Good Abduction 4- Good- Adduction 4 Good External Rotation 4- Good- Internal Rotation 4- Good- Knee Strength Knee Manual Muscle Testing Right Flexion (S2) 4 Good Extension (L3) 4- Good- Left Flexion (S2) 4 Good Extension (L3) 4- Good- Ankle/Foot Strength Ankle and Foot Manual Muscle Testing Right Dorsiflexion (L4) 4- Good- Plantarflexion (S1) 4- Good- Left Dorsiflexion (L4) 4- Good- Plantarflexion (S1) 4- Good- PT-OP-O Vestibular Start: 07/18/18 09:59 Freq: Status: Active Protocol: Document 07/17/18 16:00 DCW (Rec: 07/18/18 10:01 DCW [id number]) Vestibular Assessment Screening Tests Vestibular Artery Screen Negative Sharp-Katie Test Negative Auditory Tests Alexander Test Negative Rinne Test Negative Air Conduction Results Right Greater Visual Testing Smooth Pursuits Horizontal Negative Smooth Pursuits Vertical Negative Saccades Horizontal Negative Gaze Evoked Nystagmus With Fixation Negative Gaze Evoked Nystagmus Without Fixation Negative Heave Test Positive Bilateral Thrust Head Positive Bilateral Head Shake Negative Positional Testing Beto-Hallpike Negative Left Negative Right Rolling Test Negative Left Negative Right Supine to Sit lighthead Comments Vestibular Comments Thrust and heave tests mildly positive bilaterally PT-OP-Q Treatments Start: 07/17/18 17:48 Freq: Status: Active Protocol: Document 09/18/18 15:15 DCW (Rec: 09/18/18 15:57 DCW [id number]) Gym Equipment Shuttle Balance Red Details Wide KAYLIN (EO/EC, vs Perturbations), Staggered Stance, Lateral Weight Shift Therapeutic Exercises Other Exercises Resisted Forward/Retro Amb Other Exercise Name Resisted Forward/Retro Ambulation Side bilateral Resistance Yellow Equipment Used T-band Resisted Side Stepping Other Exercise Name Resisted Side-Stepping Side bilateral Resistance Yellow Equipment Used T-band Neuro Re-Education Treatment Balance Activities Balance Board Details PF/DF in // bars Hurdles/Foam Details Forward staggered, forward tandem, side-stepping Surface Green, Blue, Black foam, air discs Equipment Hurdles Heel/toe Walking Details Fwd/Bkwd heel-toe ambulation Surface Solid Narrow KAYLIN Details EO/EC, Head turns Surface Leo foam SLS Details SLS at rail Surface solid PT-OP-T Assessment and Plan Start: 07/17/18 17:48 Freq: Status: Active Protocol: Document 09/18/18 15:15 DCW (Rec: 09/18/18 15:57 DCW [id number]) Physical Therapy Assessment Impairments Impairments Activity Tolerance Balance Functional Activities Strength Goals Four Impairment DHI Snf Goal (LTG) Pt to score 10% on DHI Three Impairment DGI demonstrates decreased dynamic balance Short Term Goal (STG) Pt to score 16/24 on the DGI STG Duration 08/16/18 Surgical Corsetier Goal (LTG) Pt to score 19/24 on the DGI LTG Duration 09/16/18 Two Impairment Pt fear of falling Short Term Goal (STG) Pt to descend stairs at home with no increased anxiety STG Duration 08/16/18 Surgical Corsetier Goal (LTG) Pt to work out in yard for one hour with no reports of instability LTG Duration 09/16/18 One Impairment Pt has no appropriate independent home exercise program Short Term Goal (STG) Pt to be independent and consistent with an appropriate HEP STG Duration 08/16/18 Assessment Summary Assessment Pt doing very well today, reassessment next visit to determine current level of function. Physical Therapy Plan Frequency and Duration Frequency of Treatment 2x/Week Duration of Treatment 10 weeks Plan of Care Start Date 07/17/18 Plan of Care End Date 09/25/18 Therapeutic Interventions Therapeutic Interventions Aquatic Therapy Balance Training Gait Training Home Exercise Program Manual Therapy Patient/Caregiver Education Self-Care/Home Management Therapeutic Activities Therapeutic Exercises Vestibular Rehabilitation Modalities Cold Pack/Ice Massage Hot Packs Next Visit Focus/Plan Next Note Type Progress Note Next Visit Plan balance training, LE strengthening
--- NOTE | 2018-09-25 11:03 | PT.OTN ---
Current Diagnoses Dizziness and giddiness (09/25/18) Physical Therapy Treatment Note PT-OP-A Visit Information Start: 07/17/18 17:48 Freq: Status: Active Protocol: Document 09/25/18 10:30 DCW (Rec: 09/25/18 11:03 DCW [id number]) Out-Patient Physical Therapy Visit Information Visit Information Visit Type Discharge Summary Visit Start Time 10:30 Visit Stop Time 11:05 Total Visit Minutes 35 Visit Number [address] Number of [address] Visits 0 Evaluation Information Evaluation Date 07/17/18 PT-OP-B Current Condition Start: 07/17/18 17:48 Freq: Status: Active Protocol: Document 07/17/18 16:00 DCW (Rec: 07/18/18 09:59 DCW [id number]) Current Condition History of Current Condition Onset Date one year Current Complaints Gradual worsening of feeling of imbalance and increased fear of falling History of Current Condition Pt is an 82 year old female presenting with a ongoing history of a sensation of dizziness. Pt notes her dizziness is not rotational in nature, it is more of a general feeling of imbalance/ unsteadiness. Reports that she has noticed this sensation for more than a year, but with being out during the summer doing gardening, it seems to be worsening. Notes this sensation is more or less always there, and she feels the need to sit at the edge of her bed for a while when first getting up in order to center herself. Pt reports two recent falls, one occurring after she jumped quickly out of bed to get to the bathroom, and one following cataract surgery when she was leaning backward to put in eye drops and lost her balance. Pt denies recent hearing changes, diplopia, dysarthria, discoordination, or decreased mentation/consciousness. Pt denies hx of HTN, hyperlipidemia, diabetes, arrhythmia, head trauma, seizure, migraines, CVA, anxiety/panic disorders, depression, or excessive smoking or drinking. Treatment Goals Patient/Caregiver Goals Pt wants to feel more stable when up walking around Prior Functional Status Baseline Function- ADL's Independent Baseline Function- Mobility Independent Current Functional Impairments (Reported) Functional Limitations- Mobility/Gait Anxiety descending stairs Functional Limitations- Recreation/ Difficulty being out working Hobbies in the yard PT-OP-C Subjective Start: 07/17/18 17:48 Freq: Status: Active Protocol: Document 09/25/18 10:30 DCW (Rec: 09/25/18 11:03 DCW [id number]) OP-PT Subjective Patient Comments Patient Comments Pt reports she was out doing yard work, and felt so much more stable than normal. PT-OP-D Balance Start: 07/17/18 17:48 Freq: Status: Active Protocol: Document 09/25/18 10:30 DCW (Rec: 09/25/18 10:58 DCW [id number]) OP-PT Balance Assessment Sitting Balance Static Sitting Balance Ability Normal Dynamic Sitting Balance Ability Normal Standing Balance Static Standing Balance Ability Normal Dynamic Standing Balance Ability Normal Balance Tests Martinez Balance Test Martinez Balance Test Score 54/56 Martinez Impairment Rating 1 to 19% Impaired (Score 45-55 ) Martinez Balance Assessment Evaluation Sitting to Standing Ability Independent w/out Hands Unsupported Stance Safely- 2 minutes Sitting Unsupported, Feet on Floor Safely- 2 minutes Standing to Sitting Ability Safely, Minimal Hand Use Transfer Ability Safely, Minimal Hand Use Unsupported Stance- Eyes Closed Safely, 10 seconds Unsupported Stance- Eyes Open Independent, 1 minute Reaching Forward Standing Confidently, 10 inches Pick- Up Object From Floor Independent/Safe Look Behind Shoulder - Standing Shifts Weight Unilateral Turning 360 Degrees Turns Bilateral, < 4 secs Unsupported Stance, Alternating Feet on (I)- 8 Steps in 20 secs Stair Unsupported Tandem Stance Achieves Tandem Unilateral Leg Stance Lifts Leg/Holds 5-10 secs Total Score Martinez Total Score (out of 56 points) 54 Martinez Impairment Rating 1 to 19% Impaired (Score 45-55 ) Coleman Fall Scale Copyright Permission Coleman JM, Coleman RM, Rubio SJ. Development of a scale to identify the fall- prone patient. Can J Aging 1989;8;366-7. Diane Cee (2009). Preventing patient falls. (2nd ed). [place]: [place]. PT-OP-E Functional Tests Start: 07/17/18 17:48 Freq: Status: Active Protocol: Document 09/25/18 10:30 DCW (Rec: 09/25/18 10:58 DCW [id number]) Functional Tests Dynamic Gait Index (DGI) Score 21/24 DGI Impairment Rating 1 to <20% Impaired (Score 20- 23) PT-OP-M Strength Start: 07/17/18 17:48 Freq: Status: Active Protocol: Document 09/25/18 10:30 DCW (Rec: 09/25/18 10:58 DCW [id number]) Hip Strength Hip Manual Muscle Testing Right Flexion (L2) 4+ Good+ Extension (S1) 4 Good Abduction 4 Good Adduction 4+ Good+ External Rotation 4 Good Internal Rotation 4 Good Left Flexion (L2) 4+ Good+ Extension (S1) 4 Good Abduction 4 Good Adduction 4+ Good+ External Rotation 4 Good Internal Rotation 4 Good Knee Strength Knee Manual Muscle Testing Right Flexion (S2) 4+ Good+ Extension (L3) 4+ Good+ Left Flexion (S2) 4+ Good+ Extension (L3) 4+ Good+ Ankle/Foot Strength Ankle and Foot Manual Muscle Testing Right Dorsiflexion (L4) 4+ Good+ Plantarflexion (S1) 4 Good Left Dorsiflexion (L4) 4+ Good+ Plantarflexion (S1) 4 Good PT-OP-O Vestibular Start: 07/18/18 09:59 Freq: Status: Active Protocol: Document 07/17/18 16:00 DCW (Rec: 07/18/18 10:01 DCW [id number]) Vestibular Assessment Screening Tests Vestibular Artery Screen Negative Sharp-Katie Test Negative Auditory Tests Alexander Test Negative Rinne Test Negative Air Conduction Results Right Greater Visual Testing Smooth Pursuits Horizontal Negative Smooth Pursuits Vertical Negative Saccades Horizontal Negative Gaze Evoked Nystagmus With Fixation Negative Gaze Evoked Nystagmus Without Fixation Negative Heave Test Positive Bilateral Thrust Head Positive Bilateral Head Shake Negative Positional Testing [place]-Hallpike Negative Left Negative Right Rolling Test Negative Left Negative Right Supine to Sit lighthead Comments Vestibular Comments Thrust and heave tests mildly positive bilaterally PT-OP-Q Treatments Start: 07/17/18 17:48 Freq: Status: Active Protocol: Document 09/25/18 10:30 DCW (Rec: 09/25/18 11:03 DCW [id number]) Neuro Re-Education Treatment Balance Activities Balance Testing Details SLS, Martinze Balance, DGI PT-OP-T Assessment and Plan Start: 07/17/18 17:48 Freq: Status: Active Protocol: Document 09/25/18 10:30 DCW (Rec: 09/25/18 11:03 DCW [id number]) Physical Therapy Assessment Impairments Impairments Activity Tolerance Balance Functional Activities Strength Goals Four Impairment DHI Senior Care Goal (LTG) Pt to score 10% on DHI Three Impairment DGI demonstrates decreased dynamic balance Short Term Goal (STG) Pt to score 16/24 on the DGI STG Duration MET Trans Router Goal (LTG) Pt to score 19/24 on the DGI LTG Duration MET Two Impairment Pt fear of falling Short Term Goal (STG) Pt to descend stairs at home with no increased anxiety STG Duration MET Senior Care Goal (LTG) Pt to work out in yard for one hour with no reports of instability LTG Duration MET One Impairment Pt has no appropriate independent home exercise program Short Term Goal (STG) Pt to be independent and consistent with an appropriate HEP STG Duration MET Progress Towards Goals Progress Towards Goals Goals Met Assessment Summary Assessment Pt doing very well, has met all goals and is appropriate for discharge at this time. Pt no longer at an increased falls risk per DGI. Physical Therapy Plan Frequency and Duration Frequency of Treatment 2x/Week Duration of Treatment 10 weeks Plan of Care Start Date 07/17/18 Plan of Care End Date 09/25/18 Therapeutic Interventions Therapeutic Interventions Aquatic Therapy Balance Training Gait Training Home Exercise Program Manual Therapy Patient/Caregiver Education Self-Care/Home Management Therapeutic Activities Therapeutic Exercises Vestibular Rehabilitation Modalities Cold Pack/Ice Massage Hot Packs Discharge Physical Therapy Discharge Reasons Goals Met
== END 2018-11-20 14:41 ==
LOC: PHYS 10:30
PROVIDERS: Visit Provider Otolaryngology
DX: R42 Dizziness and giddiness (principal)
CPT/HCPCS: 97110; 97112; 97162